=== PATIENT | female | born 1955 | race American Indian/Alaskan Native ===

== ENCOUNTER 2016-08-08 08:07 | Outpatient (CLI) | payer MEDICAID ==
--- NOTE | 2016-08-08 11:28 | Mammography Report ---
Bilateral mammogram: Compared to 03/23/15. CAD study utilized. Findings: Predominance adipose tissue bilaterally. No mass or microcalcification. Benign axillary nodes. New focal architectural distortion mid right breast seen on CC view. Impression: New focal architectural distortion right breast. Recommend spot mag and if necessary sonographic examination. BI-RADS CATEGORY: 0 = Needs additional imaging evaluation ACR BI-RADS MAMMOGRAPHIC CODES: 0 = Needs additional imaging evaluation; 1 = Negative; 2 = Benign; 3 = Probably benign; 4 = Suspicious; 5 = Malignant; 6 = Known biopsy-proven malignancy COMMENT: 1. Dense breast tissue, i.e., adenosis, fibrocystic changes, etc., may obscure an underlying neoplasm. 2. Approximately 10% of cancers are not detected with mammography. 3. A negative mammography report should not delay biopsy if a clinically suspicious mass is present. COMMENT: Patient follow-up letters are generated in [facility].
== END 2016-08-08 08:08 | disposition home or self-care (01) ==
LOC: MAMMO 08:07
PROVIDERS: ATTEND Internal Medicine
DX: Z12.31 Encounter for screening mammogram for malignant neoplasm of breast (principal)
CPT/HCPCS: 77067; G0202

== ENCOUNTER 2016-11-06 13:42 | Outpatient (CLI) | payer MEDICAID ==
--- NOTE | 2016-11-06 14:48 | XRay Report ---
LEFT SHOULDER, 3 VIEWS History: Left shoulder pain. Findings: Mild to moderate osteoarthritic changes are identified at the left shoulder. No evidence for fracture, dislocation or ligamentous injury. Normal soft tissues. Impression: Osteoarthritic changes.
--- NOTE | 2016-11-06 14:50 | XRay Report ---
BILATERAL KNEES, 2 VIEWS History: Bilateral knee pain. Findings: Moderate to severe tricompartmental osteoarthritic changes are identified in both knees. An approximate 2 cm calcified fragment overlies the suprapatellar bursa in the right knee consistent with a calcified intra-articular body. There are moderate to large joint effusions bilaterally. No acute bony injury is appreciated. Impression: Advanced osteoarthritic changes. Joint effusions. Calcified foreign body in the right suprapatellar bursa.
== END 2016-11-06 13:43 | disposition home or self-care (01) ==
LOC: XRAY 13:42
PROVIDERS: ATTEND Physical Medicine & Rehabilitation
DX: M17.0 Bilateral primary osteoarthritis of knee (principal); M19.012 Primary osteoarthritis, left shoulder; S80.851A Superficial foreign body, right lower leg, initial encounter; X58.XXXA Exposure to other specified factors, initial encounter; Y93.89 Activity, other specified; Y92.89 Other specified places as the place of occurrence of the external cause; Y99.8 Other external cause status

== ENCOUNTER 2020-04-07 21:17 | Emergency (ER) | payer MEDICAID ==
[2020-04-07 22:14] LABS: Basophils % (Auto) 0.8 % (0.0-1.8); Eosinophils # (Auto) 0.2 K/mm3 (0.0-0.4); Eosinophils % (Auto) 2.7 % (0.0-4.3); Hematocrit 39.2 % (30.3-42.9); Hemoglobin 13.3 gm/dl (10.1-14.3); Lymphocytes # (Auto) 1.5 K/mm3 (1.2-5.4); Lymphocytes % (Auto) 23.2 % (13.4-35.0); Mean Corpuscular HGB Conc 34 % (30-34); Mean Corpuscular Volume 92 fl (79-97); Monocytes # (Auto) 0.6 K/mm3 (0.0-0.8); Monocytes % (Auto) 8.8 % (0.0-7.3); Platelet Count 272 K/mm3 (140-440); Red Blood Count 4.27 M/mm3 (3.65-5.03); Red Cell Distribution Width 13.9 % (13.2-15.2)
[2020-04-07 22:15] LABS: Alanine Aminotransferase 11 units/L (7-56); Albumin 4.2 g/dL (3.9-5); BUN/Creatinine Ratio 14; Blood Urea Nitrogen 11 mg/dL (7-17); Calcium 9.6 mg/dL (8.4-10.2); Hemolysis Index 17
--- NOTE | 2020-04-07 22:43 | XRay Report ---
CHEST 2 VIEWS INDICATION / CLINICAL INFORMATION: Chest Pain. COMPARISON: 05/07/2016 FINDINGS: SUPPORT DEVICES: Pacemaker device is present. One of the leads is projecting in the region of the lef t lung, upper lobe. Battery pack is no longer present. HEART / MEDIASTINUM: Cardiac silhouette size is upper limits of normal but unchanged. LUNGS / PLEURA: No significant pulmonary or pleural abnormality. No pneumothorax. ADDITIONAL FINDINGS: No significant additional findings. IMPRESSION: 1. No acute pulmonary disease. 2. Atypical position of pacemaker/defibrillator lead, projecting within the left upper lobe of the nury ng. This represents interval change from 2016 chest radiograph and should be considered abnormal. Signer Name: Charley Sagastume MD Signed: 04/07/2020 10:38 PM Workstation Name: [id number]
== END 2020-04-07 22:30 | disposition left against medical advice (07) ==
LOC: ED 21:17
DX: I20.9 Angina pectoris, unspecified (principal); Z53.21 Procedure and treatment not carried out due to patient leaving prior to being seen by health care provider
CPT/HCPCS: 36415; 71046; 80053; 84484; 85025